=== PATIENT | female | born 1955 | race Caucasian/White ===

== ENCOUNTER 2020-09-11 09:33 | Emergency (ER) | payer OTHER ==
[2020-09-11 09:43] VITALS: RESP 18; TEMP 98.5
--- NOTE | 2020-09-11 10:54 | XR ---
Right wrist HISTORY: Trauma and pain There is an intra-articular nondisplaced distal radial fracture is suspected, lucency is present mary g the articular surface although there is remodeling, question a remote trauma, there is scapholunate dissociation. No dislocation. IMPRESSION: Correlate for history of remote trauma, difficult to exclude intra-articular fracture dis esperanza radius. Scapholunate dissociation, wrist MRI may be of benefit.
--- NOTE | 2020-09-11 11:29 | ED ---
Fall HPI - General Chief Complaint: Fall Stated Complaint: [facility] Rt Wrist Injury/Lt Rib Pain Time Seen by Provider: 09/11/20 09:50 Source: patient Mode of arrival: ambulatory - History of Present Illness Initial Comments: 65-year-old female presents emergency Department with a chief complaint of fall. This occurred about one hour to arrival. This was a FOOSH on the right wrist where most of her pain is located. She reports limited range of motion with flexion and extension due to the pain. Denies any paresthesias or weakness in the fingers. Denies taking medication to alleviate his symptoms pain Worse with movement and alleviated with rest. - Related Data Home Medications Medication Instructions Recorded Confirmed No Known Home Medications 09/11/20 09/11/20 Allergies Allergy/AdvReac Type Severity Reaction Status Date / Time codeine Allergy Rash/Hives/ Verified 09/11/20 10:59 Nausea Review of Systems ROS Statement: Those systems with pertinent positive or pertinent negative responses have been documented in the HPI. ROS Other: All systems not noted in ROS Statement are negative. Past Medical History Past Medical History: No Reported History History of Any Multi-Drug Resistant Organisms: None Reported Past Surgical History: Appendectomy, Hysterectomy, Orthopedic Surgery, Tonsillectomy Additional Past Surgical History / Comment(s): carpal tunnel bi-lat, right knee Past Psychological History: No Psychological Hx Reported Smoking Status: Never smoker Past Alcohol Use History: Occasional Past Drug Use History: None Reported General Exam Limitations: no limitations General appearance: alert, in no apparent distress Head exam: Present: atraumatic, normocephalic, normal inspection Eye exam: Present: normal appearance, PERRL, EOMI Pupils: Present: normal accommodation ENT exam: Present: normal exam, normal oropharynx, mucous membranes moist, TM's normal bilaterally, normal external ear exam Neck exam: Present: normal inspection, full ROM. Absent: tenderness Respiratory exam: Present: normal lung sounds bilaterally. Absent: respiratory distress, wheezes, rales, rhonchi, stridor Cardiovascular Exam: Present: regular rate, normal rhythm, normal heart sounds. Absent: systolic murmur, diastolic murmur Extremities exam: Present: normal inspection (No swelling ecchymosis or erythema), tenderness (Tenderness at the right wrist), normal capillary refill, other (Palpable ulnar and radial pulses bilaterally). Absent: full ROM (Limited range of motion due to pain at the right wrist), pedal edema, joint swelling, calf tenderness Back exam: Present: normal inspection, full ROM. Absent: tenderness, CVA tenderness (R), CVA tenderness (L) Neurological exam: Present: alert, oriented X3 Psychiatric exam: Present: normal affect, normal mood Skin exam: Present: warm, dry, intact, normal color Course Vital Signs 09/11/20 09/11/20 09/11/20 09:38 10:43 11:37 Temperature 98.5 F 98.5 F Pulse Rate 62 63 Respiratory 18 18 18 Rate Blood Pressure 140/80 132/78 O2 Sat by Pulse 100 100 Oximetry Procedures - Orthopedic Splinting/Casting Injury #1 Side: right Upper Extremity Injury Location: wrist Upper Extremity Immobilizer: volar splint, Jose Antonio wrap, synthetic pre-padded splint Medical Decision Making - Medical Decision Making 65-year-old male presents to the emergency department with a chief complaint of fall. On physical examination, patient is neurovascularly intact with limited range of motion and tenderness at the right wrist. X-ray reveals a possibility of an intra-articular fracture of the distal radius. Scapholunate dissociation. A volar splint was applied. Patient was advised to follow with orthopedics. Return parameters were thoroughly discussed with patient was understanding and agreeable. Case discussed with Dr. Kerr. Disposition Clinical Impression: Fall, Wrist fracture Disposition: HOME SELF-CARE Condition: Stable Instructions (If sedation given, give patient instructions): Wrist Fracture in Adults (ED) Additional Instructions: Follow-up with orthopedics. Return to emergency department if symptoms worsen. Is patient prescribed a controlled substance at d/c from ED?: No Referrals: Lambert Covarrubias DO [Primary Care Provider] - 1-2 days Domenico Dooley MD [STAFF PHYSICIAN] - 1-2 days Time of Disposition: 11:29
[2020-09-11 11:46] VITALS: BP 132/78; PULSE 63
== END 2020-09-11 11:39 | disposition home or self-care (01) ==
LOC: EC 09:33
DX: S52.571A Other intraarticular fracture of lower end of right radius, initial encounter for closed fracture (principal); Z90.89 Acquired absence of other organs; Z90.49 Acquired absence of other specified parts of digestive tract; Z90.09 Acquired absence of other part of head and neck; W19.XXXA Unspecified fall, initial encounter
CPT/HCPCS: 29125; 99283